=== PATIENT | male | born 1970 | race Hispanic/Latino ===

== ENCOUNTER 2022-11-07 10:52 | Inpatient (IN) | payer SELFPAY ==
[2022-11-07 13:09] LABS: Hemoglobin 6.9 g/dL (14.0-18.0); Mean Corpuscular HGB CONC 30.6 g/dL (32.0-36.0); Mean Corpuscular Hemoglobin 20.3 pg (27.0-31.0); Mean Corpuscular Volume 66.4 fl (78.0-98.0); RBC Distribution Width 17.7 % (11.5-14.5); White Blood Cell (WBC) Count 3.4 10x3/uL (4.8-10.8)
[2022-11-07 13:10] LABS: #Lymphocytes 0.9 thou/uL (1.20-3.40); #Monocytes 0.3 thou/uL (0.11-0.59); #Neutrophils 2.2 thou/uL (1.40-6.50); %Basophils 0.1 % (0.0-1.0); %Eosinophils 0.5 % (0.0-10.0); %Lymphocytes 25.3 % (21.0-51.0); %Monocytes 9.8 % (0.0-10.0); %Neutrophils 64.3 % (42.0-75.0)
[2022-11-07 13:15] LABS: ALT (SGPT) 44 U/L (8-55); AST (SGOT) 61 U/L (5-34); Albumin 3.5 g/dL (3.5-5.0); Alkaline Phosphatase 231 U/L (40-110); Anion Gap 9 mmol/L (10-20); BUN (Urea Nitrogen) 7 mg/dL (8.4-25.7); Bilirubin, Total 1.9 mg/dL (0.2-1.2); Calc. Creatinine Clearance 0 mL/min (70-130); Calcium 8.6 mg/dL (7.8-10.44); Carbon Dioxide 23 mmol/L (22-29); Chloride 103 mmol/L (98-107); Estimated GFR 108; Globulin 3.4 g/dL (2.4-3.5); Glucose 285 mg/dL (70-105); Potassium 3.4 mmol/L (3.5-5.1); Protein, Total 6.9 g/dL (6.0-8.3); Sodium 132 mmol/L (136-145)
[2022-11-07 13:29] LABS: Hypochromia SLIGHT = 6-15 cells (100X) (0-5/hpf); MDiff Complete? YES; Mean Platelet Volume 8.3 fL (7.4-10.4); Microcytosis SLIGHT = 6-15 cells (100X) (0-5/hpf); Ovalocytes SLIGHT = 2-5 cells (100X) (0-1/hpf); Platelet Count 72 10x3/uL (130-400); Platelet Morphology Comment Appears Decreased; Polychromasia SLIGHT = 2-3 cells (100X) (0-2/hpf)
[2022-11-07 13:53] LABS: Bacteria/HPF None Seen HPF (None Seen); Bilirubin Negative (Negative); Blood, Urine 1+ (Negative); Clarity Clear (Clear); Glucose, Urine (Dipstick) Greater than 1000 mg/dL (Negative); Ketone, Urine Trace mg/dL (Negative); Leukocyte Negative Leu/uL (Negative); Nitrite Negative (Negative); Protein, Urine (Dipstick) 50 mg/dL (Neg-Trace); RBC/HPF 0-3 HPF (0-3); Squamous Epithelial 0-3 HPF (0-3); WBC/HPF 0-3 HPF (0-3); pH, Urine 5.5 (5.0-9.0)
[2022-11-07 13:54] LABS: Specific Gravity, Urine 1.053 (1.002-1.036)
[2022-11-07] MEDS ORDERED: Iopamidol-370 76% 500 ML 1 ML ONE (14:38)
[2022-11-07] MEDS ORDERED: Acetaminophen 325 MG TAB PO PRN (14:54)
[2022-11-07] MEDS ORDERED: Ondansetron ODT 4 MG TAB PO PRN (14:54)
[2022-11-07] MEDS ORDERED: Ondansetron PF 4 MG/2 ML Vial IVP PRN (14:54)
[2022-11-07] MEDS ORDERED: Dextrose 50% Abboject 50 ML SYRINGE SLOW IVP PRN (15:11)
[2022-11-07] MEDS ORDERED: HumaLOG 300 UNITS/3 ML VIAL SC PRN (15:11)
[2022-11-07] MEDS ORDERED: Dextrose 5% in Water 1,000 ML IV PRN (15:11)
[2022-11-07] MEDS ORDERED: Potassium Chloride 20 MEQ TAB PO SCH (16:30)
[2022-11-07 16:45] VITALS: BMI 26.4
[2022-11-07] MEDS: Nicotine 21 MG PATCH TD SCH (16:51)
[2022-11-07] MEDS ORDERED: Insulin Glargine 30 UNITS/0.3 ML VIAL SC SCH (21:00)
[2022-11-07] MEDS: Famotidine/PF 20 mg/2ml Vial SLOW IVP SCH (21:06)
[2022-11-08 05:39] LABS: Reticulocyte Count 3.1 % (0.5-1.5)
[2022-11-08 05:43] LABS: Hemoglobin A1c 9.6 % (4.0-6.0)
[2022-11-08 05:44] LABS: #Lymphocytes 0.8 thou/uL (1.20-3.40); #Monocytes 0.3 thou/uL (0.11-0.59); #Neutrophils 1.3 thou/uL (1.40-6.50); %Basophils 0.5 % (0.0-1.0); %Eosinophils 0.8 % (0.0-10.0); %Monocytes 13.4 % (0.0-10.0); %Neutrophils 53.3 % (42.0-75.0); Hemoglobin 7.6 g/dL (14.0-18.0); Mean Corpuscular HGB CONC 30.4 g/dL (32.0-36.0); Mean Corpuscular Hemoglobin 21.3 pg (27.0-31.0); Mean Corpuscular Volume 70.2 fl (78.0-98.0); Mean Platelet Volume 8.9 fL (7.4-10.4); Platelet Count 71 10x3/uL (130-400); RBC Distribution Width 19.8 % (11.5-14.5); Red Blood Cell (RBC) Count 3.58 mill/uL (4.70-6.10); White Blood Cell (WBC) Count 2.5 10x3/uL (4.8-10.8)
[2022-11-08 06:04] LABS: Anion Gap 8 mmol/L (10-20); BUN (Urea Nitrogen) 6 mg/dL (8.4-25.7); Calc. Creatinine Clearance 140 mL/min (70-130); Calcium 8.2 mg/dL (7.8-10.44); Carbon Dioxide 23 mmol/L (22-29); Cardiac Risk 2.2 (Less than 4.5); Chloride 106 mmol/L (98-107); Cholesterol 109 mg/dl (< 200 Desired); Estimated GFR 112; Glucose 207 mg/dL (70-105); HDL Cholesterol 49 mg/dL (>60 Neg Risk); Iron 19 ug/dL (65-175); Iron Binding Capacity, Total 429 mcg/dL (261-462); LDL Cholesterol, Calculated 51 mg/dL; Potassium 3.7 mmol/L (3.5-5.1); Sodium 133 mmol/L (136-145); Transferrin, Serum 343 mg/dL (174-364); Triglycerides 47 mg/dL (Less than 150)
[2022-11-08] MEDS: HumaLOG 300 UNITS/3 ML VIAL SC PRN ×3 (06:21→16:56)
[2022-11-08 06:22] LABS: CEA, Serum 6.64 ng/mL (< or = 5.0); Ferritin 9.65 ng/mL (22-322)
[2022-11-08] MEDS ORDERED: Iron Sucrose Complex 200 MG in Sodium Chloride 0.9% 100 ML IVPB SCH (08:30)
[2022-11-08] MEDS: Famotidine/PF 20 mg/2ml Vial SLOW IVP SCH ×2 (09:37→22:59)
[2022-11-08] MEDS ORDERED: Iron, Sodium Ferric Gluconate 250 MG in Sodium Chloride 0.9% 250 ML 250 ML IVPB SCH (10:00)
[2022-11-08] MEDS: Nicotine 21 MG PATCH TD SCH (15:42)
[2022-11-08] MEDS: HYDROcodone/Acetaminophen 5/325 mg Tablet PO PRN (15:44)
[2022-11-08 17:32] LABS: INR-International Normal Ratio 1.2; Prothrombin Time 15.9 sec (12.0-14.7)
[2022-11-08 17:33] LABS: PTT 34.4 sec (22.9-36.1)
[2022-11-08 17:38] LABS: Acetaminophen Less than 10.0 mcg/mL (10.0-30.0); Bilirubin, Direct 0.7 mg/dL (0.1-0.3)
[2022-11-08 18:24] LABS: HBCM Index 0.07 S/CO (0-0.79); HIV (1/2) Antibody/Antigen Non-Reactive (NonReactive); HIV 1/2 INDEX 0.16 S/CO (<1.00); Hep A IgM AB Non-Reactive (NonReactive); Hep A IgM S/CO 0.39 S/CO (0-0.79); Hep B Surf Ag Non-Reactive S/CO (NonReactive); Hep C IgG Ab Non-Reactive (NonReactive); Hep C Index 0.06 S/CO (0-0.79); Hepatitis B Core IgM Abs Non-Reactive (NonReactive)
[2022-11-08 18:42] LABS: Creatinine, Urine 49.66 mg/dL (63-166); Microalbumin Urine Less than 1.0 mg/dL (0.5-50.0)
[2022-11-08] MEDS ORDERED: Insulin Glargine 30 UNITS/0.3 ML VIAL SC SCH (21:00)
[2022-11-09 05:28] LABS: #Lymphocytes 1.1 thou/uL (1.20-3.40); #Monocytes 0.4 thou/uL (0.11-0.59); #Neutrophils 1.4 thou/uL (1.40-6.50); %Basophils 0.6 % (0.0-1.0); %Eosinophils 0.6 % (0.0-10.0); %Lymphocytes 36.9 % (21.0-51.0); %Monocytes 14.3 % (0.0-10.0); %Neutrophils 47.6 % (42.0-75.0); Hemoglobin 8.2 g/dL (14.0-18.0); Mean Corpuscular HGB CONC 31.2 g/dL (32.0-36.0); Mean Corpuscular Hemoglobin 21.6 pg (27.0-31.0); Mean Corpuscular Volume 69.3 fl (78.0-98.0); Mean Platelet Volume 7.9 fL (7.4-10.4); Platelet Count 67 10x3/uL (130-400); Red Blood Cell (RBC) Count 3.77 mill/uL (4.70-6.10); White Blood Cell (WBC) Count 2.9 10x3/uL (4.8-10.8)
[2022-11-09 05:35] LABS: INR-International Normal Ratio 1.2; PTT 34.2 sec (22.9-36.1)
[2022-11-09 05:46] LABS: ALT (SGPT) 55 U/L (8-55); AST (SGOT) 91 U/L (5-34); Albumin 3.3 g/dL (3.5-5.0); Alkaline Phosphatase 189 U/L (40-110); Anion Gap 11 mmol/L (10-20); BUN (Urea Nitrogen) 6 mg/dL (8.4-25.7); Bilirubin, Total 1.4 mg/dL (0.2-1.2); Calc. Creatinine Clearance 134 mL/min (70-130); Calcium 8.5 mg/dL (7.8-10.44); Carbon Dioxide 22 mmol/L (22-29); Chloride 104 mmol/L (98-107); Estimated GFR 111; Globulin 3.3 g/dL (2.4-3.5); Glucose 147 mg/dL (70-105); Potassium 3.8 mmol/L (3.5-5.1); Protein, Total 6.6 g/dL (6.0-8.3); Sodium 133 mmol/L (136-145)
[2022-11-09 06:20] LABS: Alpha-Fetoprotein,Tumor Marker 3.3 ng/mL (0.89-8.78); Cancer Antigen - CA 125 444.8 U/mL (Less than 35)
[2022-11-09] MEDS ORDERED: Ferrous Sulfate 325 MG TAB PO SCH (08:00)
[2022-11-09] MEDS: Nicotine 21 MG PATCH TD SCH (08:15)
[2022-11-09] MEDS: Folic Acid/Vit B Comp W-C PO SCH (08:16)
[2022-11-09] MEDS: Famotidine/PF 20 mg/2ml Vial SLOW IVP SCH (08:16)
[2022-11-09] MEDS: HYDROcodone/Acetaminophen 5/325 mg Tablet PO PRN (08:20)
[2022-11-09] MEDS ORDERED: Pantoprazole 40 MG VIAL IVP SCH ×2 (09:00→12:15)
[2022-11-09] MEDS: HumaLOG 300 UNITS/3 ML VIAL SC PRN (12:37)
[2022-11-09] MEDS ORDERED: GoLYTELY 4,000 ml Bottle PO SCH (16:00)
[2022-11-09] MEDS: Insulin Glargine 30 UNITS/0.3 ML VIAL SC SCH (20:47)
[2022-11-10] MEDS: HYDROcodone/Acetaminophen 5/325 mg Tablet PO PRN ×3 (00:13→21:38)
[2022-11-10 05:41] LABS: #Monocytes 0.4 thou/uL (0.11-0.59); #Neutrophils 1.5 thou/uL (1.40-6.50); %Basophils 0.9 % (0.0-1.0); %Eosinophils 1.2 % (0.0-10.0); %Lymphocytes 33.7 % (21.0-51.0); %Monocytes 12.7 % (0.0-10.0); %Neutrophils 51.5 % (42.0-75.0); Hemoglobin 8.2 g/dL (14.0-18.0); Mean Corpuscular Volume 70.1 fl (78.0-98.0); Mean Platelet Volume 7.8 fL (7.4-10.4); Platelet Count 76 10x3/uL (130-400); RBC Distribution Width 20.4 % (11.5-14.5); White Blood Cell (WBC) Count 2.9 10x3/uL (4.8-10.8)
[2022-11-10 05:46] LABS: INR-International Normal Ratio 1.3; PTT 35.1 sec (22.9-36.1); Prothrombin Time 16.8 sec (12.0-14.7)
[2022-11-10 06:00] LABS: ALT (SGPT) 67 U/L (8-55); AST (SGOT) 84 U/L (5-34); Albumin 3.3 g/dL (3.5-5.0); Alkaline Phosphatase 171 U/L (40-110); Anion Gap 13 mmol/L (10-20); BUN (Urea Nitrogen) 7 mg/dL (8.4-25.7); Bilirubin, Total 1.5 mg/dL (0.2-1.2); Calc. Creatinine Clearance 134 mL/min (70-130); Calcium 8.9 mg/dL (7.8-10.44); Carbon Dioxide 24 mmol/L (22-29); Chloride 105 mmol/L (98-107); Estimated GFR 112; Globulin 3.2 g/dL (2.4-3.5); Glucose 123 mg/dL (70-105); Potassium 3.6 mmol/L (3.5-5.1); Protein, Total 6.5 g/dL (6.0-8.3); Sodium 138 mmol/L (136-145)
[2022-11-10] MEDS ORDERED: Promethazine HCl 25 MG/ML VIAL IM PRN (08:15)
[2022-11-10] MEDS ORDERED: Ondansetron HCl/PF 4 MG/2 ML Vial IVP PRN (08:15)
[2022-11-10] MEDS ORDERED: PROPOFOL 200 MG/20 ML VIAL ONE (09:42)
[2022-11-10] MEDS: Thiamine 100 MG TAB PO SCH (12:17)
[2022-11-10] MEDS: Folic Acid/Vit B Comp W-C PO SCH (12:17)
[2022-11-10] MEDS: Pantoprazole 40 MG VIAL IVP SCH (12:18)
[2022-11-10] MEDS: Octreotide Acetate 1,250 MCG in Sodium Chloride 0.9% 250 ML 250 ML IVPB SCH (12:22)
[2022-11-10] MEDS: Morphine 4 MG/ML VIAL SLOW IVP PRN (15:59)
[2022-11-10] MEDS: Nicotine 21 MG PATCH TD SCH (17:07)
[2022-11-10] MEDS: Insulin Glargine 30 UNITS/0.3 ML VIAL SC SCH (21:40)
[2022-11-11] MEDS: HYDROcodone/Acetaminophen 5/325 mg Tablet PO PRN (04:24)
[2022-11-11 05:15] LABS: Hemoglobin 8.9 g/dL (14.0-18.0); Mean Corpuscular HGB CONC 31.7 g/dL (32.0-36.0); Mean Corpuscular Hemoglobin 22.4 pg (27.0-31.0); Mean Corpuscular Volume 70.6 fl (78.0-98.0); Mean Platelet Volume 6.9 fL (7.4-10.4); Platelet Count 72 10x3/uL (130-400); RBC Distribution Width 20.6 % (11.5-14.5); Red Blood Cell (RBC) Count 3.97 mill/uL (4.70-6.10); White Blood Cell (WBC) Count 3.1 10x3/uL (4.8-10.8)
[2022-11-11 05:24] LABS: #Monocytes 0.4 thou/uL (0.11-0.59); #Neutrophils 1.7 thou/uL (1.40-6.50); %Basophils 0.3 % (0.0-1.0); %Eosinophils 0.8 % (0.0-10.0); %Lymphocytes 31.7 % (21.0-51.0); %Monocytes 13.3 % (0.0-10.0); %Neutrophils 53.9 % (42.0-75.0); ALT (SGPT) 77 U/L (8-55); AST (SGOT) 93 U/L (5-34); Albumin 3.4 g/dL (3.5-5.0); Alkaline Phosphatase 177 U/L (40-110); Anion Gap 13 mmol/L (10-20); Anisocytosis SLIGHT = 6-15 cells (100X) (0-5/hpf); BUN (Urea Nitrogen) 9 mg/dL (8.4-25.7); Bilirubin, Total 1.5 mg/dL (0.2-1.2); Calc. Creatinine Clearance 115 mL/min (70-130); Calcium 8.8 mg/dL (7.8-10.44); Carbon Dioxide 24 mmol/L (22-29); Chloride 102 mmol/L (98-107); Estimated GFR 107; Globulin 3.4 g/dL (2.4-3.5); Glucose 163 mg/dL (70-105); Hypochromia SLIGHT = 6-15 cells (100X) (0-5/hpf); MDiff Complete? YES; Microcytosis SLIGHT = 6-15 cells (100X) (0-5/hpf); Platelet Morphology Comment Appears Decreased; Potassium 3.9 mmol/L (3.5-5.1); Protein, Total 6.8 g/dL (6.0-8.3); Sodium 135 mmol/L (136-145)
[2022-11-11] MEDS: HumaLOG 300 UNITS/3 ML VIAL SC PRN ×2 (06:18→11:29)
[2022-11-11] MEDS: Folic Acid/Vit B Comp W-C PO SCH (09:57)
[2022-11-11] MEDS: Thiamine 100 MG TAB PO SCH (09:57)
[2022-11-11] MEDS: Pantoprazole 40 MG VIAL IVP SCH (09:58)
[2022-11-11] MEDS: Morphine 4 MG/ML VIAL SLOW IVP PRN (10:08)
[2022-11-11] MEDS ORDERED: Iron, Sodium Ferric Gluconate 125 MG in Sodium Chloride 0.9% 100 ML IVPB SCH (14:00)
[2022-11-11] MEDS: Nicotine 21 MG PATCH TD SCH (14:25)
[2022-11-11] MEDS: Octreotide Acetate 1,250 MCG in Sodium Chloride 0.9% 250 ML 250 ML IVPB SCH (20:54)
[2022-11-12 00:10] VITALS: TEMP 98.6
[2022-11-12 05:52] LABS: Hemoglobin 9.1 g/dL (14.0-18.0); Mean Corpuscular HGB CONC 30.3 g/dL (32.0-36.0); Mean Corpuscular Hemoglobin 21.4 pg (27.0-31.0); Mean Corpuscular Volume 70.8 fl (78.0-98.0); Mean Platelet Volume 7.8 fL (7.4-10.4); Platelet Count 86 10x3/uL (130-400); RBC Distribution Width 20.8 % (11.5-14.5); Red Blood Cell (RBC) Count 4.24 mill/uL (4.70-6.10); White Blood Cell (WBC) Count 4.1 10x3/uL (4.8-10.8)
[2022-11-12 06:08] LABS: ALT (SGPT) 66 U/L (8-55); AST (SGOT) 74 U/L (5-34); Albumin 3.5 g/dL (3.5-5.0); Alkaline Phosphatase 167 U/L (40-110); Anion Gap 11 mmol/L (10-20); BUN (Urea Nitrogen) 12 mg/dL (8.4-25.7); Bilirubin, Total 1.2 mg/dL (0.2-1.2); Calc. Creatinine Clearance 112 mL/min (70-130); Calcium 8.7 mg/dL (7.8-10.44); Carbon Dioxide 24 mmol/L (22-29); Chloride 103 mmol/L (98-107); Estimated GFR 106; Globulin 3.4 g/dL (2.4-3.5); Glucose 195 mg/dL (70-105); Potassium 4.2 mmol/L (3.5-5.1); Protein, Total 6.9 g/dL (6.0-8.3); Sodium 134 mmol/L (136-145)
[2022-11-12 06:10] LABS: #Lymphocytes 1.2 thou/uL (1.20-3.40); #Monocytes 0.5 thou/uL (0.11-0.59); #Neutrophils 2.4 thou/uL (1.40-6.50); %Basophils 0.3 % (0.0-1.0); %Eosinophils 0.7 % (0.0-10.0); %Monocytes 12.2 % (0.0-10.0); %Neutrophils 57.9 % (42.0-75.0)
[2022-11-12] MEDS: Pantoprazole 40 MG VIAL IVP SCH (08:23)
[2022-11-12] MEDS: Thiamine 100 MG TAB PO SCH (08:23)
[2022-11-12] MEDS: Morphine 4 MG/ML VIAL SLOW IVP PRN (08:24)
[2022-11-12 08:26] VITALS: BP 109/65
[2022-11-12] MEDS: Folic Acid/Vit B Comp W-C PO SCH (08:45)
[2022-11-12 12:26] LABS: ANA Symphony (Qualitative) Negative (Negative); ANA Symphony (Quantitative) 0.2 Ratio (< 0.7 Negative)
[2022-11-12 14:16] LABS: EBV VCA IgM <36.0 U/mL (0.0-35.9)
[2022-11-12 20:36] LABS: CMV DNA-PCR Test Negative (Negative)
== END 2022-11-12 14:09 | disposition home or self-care (01) | DRG 728 ==
LOC: ERS 10:52 → MSONC 15:51
PROVIDERS: ADMIT Hospitalist; ATTEND Family Medicine
PROC: 30233N1 Transfusion of Nonautologous Red Blood Cells into Peripheral Vein, Percutaneous Approach (ICD-10-PCS; 2022-11-07)
PROC: 0DB68ZX Excision of Stomach, Via Natural or Artificial Opening Endoscopic, Diagnostic (ICD-10-PCS; principal; 2022-11-10)
PROC: 06L38CZ Occlusion of Esophageal Vein with Extraluminal Device, Via Natural or Artificial Opening Endoscopic (ICD-10-PCS; 2022-11-10)
PROC: 0DJD8ZZ Inspection of Lower Intestinal Tract, Via Natural or Artificial Opening Endoscopic (ICD-10-PCS; 2022-11-10)
DX: N45.1 Epididymitis (principal); D61.818 Other pancytopenia; I85.00 Esophageal varices without bleeding; F17.210 Nicotine dependence, cigarettes, uncomplicated; E11.9 Type 2 diabetes mellitus without complications; E87.6 Hypokalemia; D50.9 Iron deficiency anemia, unspecified; K29.70 Gastritis, unspecified, without bleeding; K57.30 Diverticulosis of large intestine without perforation or abscess without bleeding; Z20.822 Contact with and (suspected) exposure to COVID-19; Z98.890 Other specified postprocedural states
CPT/HCPCS: 36415; 36416; 36430; 74177; 76870; 80048; 80053; 80061; 80074; 80143; 81003; 81015; 82043; 82105; 82248; 82274; 82378; 82607; 82728; 83036; 83540; 83550; 83615; 83880; 84443; 84466; 85025; 85046; 85610; 85730; 86038; 86225; 86301; 86304; 86664; 86665; 86850; 86900; 86901; 87389; 87497; 88305; 93306; 93976; 80307; C9113; J1815; J1956; J2270; J2354; J2704; J2916; J3490; J7050; P9016; Q9967; S0028; U0003; U0005

== ENCOUNTER 2023-10-05 13:56 | Emergency (ER) | payer SELFPAY | END 2023-10-05 14:29 | LOC: ERS 13:56 | DX: F10.129 Alcohol abuse with intoxication, unspecified (principal); Z02.89 Encounter for other administrative examinations | CPT/HCPCS: 99283 ==